=== PATIENT | female | born 1955 | race Hispanic/Latino ===

== ENCOUNTER 2018-10-15 06:48 | Day surgery (SDC) | payer OTHER ==
[~2018-10-15] VITALS: Ht 154.9 cm; Wt 58.5 kg
[2018-10-15 07:23] VITALS: BP 124/58
[2018-10-15 07:38] LABS: BASOPHILS % (AUTO) 0.7 % (0.0-5.0); EOSINOPHILS % (AUTO) 1.8 % (0.0-8.0); HEMATOCRIT 32.6 % (36-48); LYMPHOCYTES % (AUTO) 22.1 % (21.0-51.0); MEAN CORPUSCULAR HEMOGLOBIN 33.9 pg (27.0-33.0); MEAN CORPUSCULAR HGB CONC 33.9 g/dL (32.0-36.0); MONOCYTES % (AUTO) 9.1 % (3.0-13.0); NEUTROPHILS % (AUTO) 66.3 % (40.0-77.0); PLATELET COUNT (AUTO) 130 K/uL (130-400); RED BLOOD CELL COUNT(AUTO) 3.26 MIL/uL (4.00-5.50); RED CELL DISTRIBUTION WIDTH 13.8 % (11.0-15.5); WHITE BLOOD COUNT (AUTO) 4.3 K/uL (4.8-10.8)
[2018-10-15 07:46] LABS: CREATININE 0.6 mg/dL (0.5-1.5); POTASSIUM 3.8 mmol/L (3.5-5.1)
[2018-10-15] MEDS ORDERED: LOSA100T58 PO (07:49)
[2018-10-15] MEDS ORDERED: OMEP20CA10 PO (07:49)
[2018-10-15] MEDS ORDERED: GLIM1TAB2 PO (07:49)
[2018-10-15] MEDS ORDERED: FERS325 PO (07:49)
[2018-10-15] MEDS ORDERED: LORA10CA9 PO (07:49)
[2018-10-15] MEDS ORDERED: SUCR1TAB2 PO (07:49)
[2018-10-15] MEDS ORDERED: PRAV20TA4 PO (07:49)
[2018-10-15] MEDS ORDERED: METF-444 PO (07:49)
[2018-10-15] MEDS ORDERED: SODIUM CHLORIDE 0.9% 1000ML 1,000 ML IV ONE (07:52)
[2018-10-15] MEDS ORDERED: PROPOFOL 10 MG/ML 20ML VIAL IV ONE ×4 (09:50→11:00)
[2018-10-15] MEDS ORDERED: LIDOCAINE HCL 1% 20 ML VIAL ONE (09:51)
[2018-10-15 10:08] VITALS: BP 86/32
[2018-10-15 10:13] VITALS: BP 93/43
[2018-10-15 10:18] VITALS: BP 100/53
[2018-10-15] MEDS ORDERED: ATROPINE SULFATE 0.1 MG/ML 10 ML SYG IVP ONE (10:21)
[2018-10-15 10:23] VITALS: BP 109/55
[2018-10-15 10:26] VITALS: BP 119/61
== END 2018-10-15 10:38 | disposition home or self-care (01) ==
LOC: DAH 06:48 → ENDO 06:48
PROVIDERS: ATTEND Surgery
DX: K21.9 Gastro-esophageal reflux disease without esophagitis (principal); K31.9 Disease of stomach and duodenum, unspecified; I10 Essential (primary) hypertension; Z79.899 Other long term (current) drug therapy; K76.0 Fatty (change of) liver, not elsewhere classified; E78.00 Pure hypercholesterolemia, unspecified; Z98.890 Other specified postprocedural states; Z83.3 Family history of diabetes mellitus; Z82.49 Family history of ischemic heart disease and other diseases of the circulatory system; Z88.0 Allergy status to penicillin
CPT/HCPCS: 36415; 43239; 80048; 82948; 85025; 88305; A4606; J0461; J2704; J7030

== ENCOUNTER → 2024-11-18 | Outpatient (CLI) | payer OTHER ==
[~2024-11-18] MED LIST: FERS325 PO; GLIM1TAB56 PO; LORA10CA9 PO; LOSA100T59 PO; METF-444 PO; OMEP20CA12 PO; PRAV20TA59 PO; SUCR1TAB2 PO
--- NOTE | 2024-11-19 04:55 | HMCIMG ---
EXAM: CR Right Foot, 4 views. CLINICAL HISTORY: 4th and 5th phalanx fracture. COMPARISON: None provided. FINDINGS: Nondisplaced acute fracture around the distal aspect of the 4th and 5th proximal phalanx. Mild osteopenia. Moderate osteoarthritis, most pronounced in the second toe interphalangeal joints. Small posterior calcaneal enthesophyte. Atherosclerotic vascular calcifications. IMPRESSION: Nondisplaced acute fracture around the distal aspect of the 4th and 5th proximal phalanx. /[facility]
== END | disposition home or self-care (01) ==
LOC: RAH 12:16
PROVIDERS: ATTEND Clinical Nurse Specialist Family Health
DX: S92.514D Nondisplaced fracture of proximal phalanx of right lesser toe(s), subsequent encounter for fracture with routine healing (principal); M85.871 Other specified disorders of bone density and structure, right ankle and foot; M19.071 Primary osteoarthritis, right ankle and foot; M77.31 Calcaneal spur, right foot; I70.8 Atherosclerosis of other arteries; Z91.81 History of falling; X58.XXXD Exposure to other specified factors, subsequent encounter
CPT/HCPCS: 73630

== ENCOUNTER → 2025-02-06 | Outpatient (CLI) | payer OTHER ==
--- NOTE | 2025-02-06 12:08 | HMCIMG ---
ELBOW 2VWS RT REASON: PAIN IN RIGHT ELBOW TECHNIQUE: 3 views were obtained. FINDINGS: There is no evidence of fracture or dislocation. There is no joint effusion. The soft tissues appear unremarkable. There is no evidence of a radiopaque foreign body. IMPRESSION: No acute findings.
--- NOTE | 2025-02-06 12:08 | HMCIMG ---
KNEE/PATELLA 1-2VWS LT REASON: PAIN IN LEFT KNEE TECHNIQUE: 2 views were obtained. FINDINGS: There is no evidence of fracture or dislocation. There is no joint effusion. The soft tissues appear unremarkable. There is no evidence of a radiopaque foreign body. IMPRESSION: No acute findings.
--- NOTE | 2025-02-06 12:18 | HMCIMG ---
HAND 3+VWS RT REASON: PAIN IN RIGHT WRIST/HAND TECHNIQUE: 3 views were obtained. FINDINGS: There is no evidence of fracture or dislocation. There is severe osteopenia with severe narrowing of the interphalangeal joint suggesting of osteoarthritic changes. There is no joint effusion. The soft tissues appear unremarkable. There is no evidence of a radiopaque foreign body. IMPRESSION: No acute fracture or dislocation Severe osteopenia Severe osteoarthropathy of the interphalangeal joint most pronounced of the DIP and middle interphalangeal joints.
== END | disposition home or self-care (01) ==
LOC: RAH 09:52
PROVIDERS: ATTEND Internal Medicine
DX: M19.90 Unspecified osteoarthritis, unspecified site (principal); M85.841 Other specified disorders of bone density and structure, right hand; M25.841 Other specified joint disorders, right hand; M25.561 Pain in right knee; M25.562 Pain in left knee; M25.531 Pain in right wrist; M25.521 Pain in right elbow; W19.XXXA Unspecified fall, initial encounter
CPT/HCPCS: 73070; 73130; 73560